=== PATIENT | female | born 1960 | race Caucasian/White ===

== ENCOUNTER 2019-07-23 08:00 | Inpatient (IN) | payer OTHER, MEDICAID ==
[~2019-07-23 08:00] MED LIST: ACETAMINOPHEN 500 MG TABLET PO ONE; CELECOXIB 100 MG CAPSULE PO ONE; CLINDAMYCIN PHOS/D5W 900MG 900 MG/50 ML BAG IVPB ONE; FAMOTIDINE 20MG TABLET PO ONE; METOCLOPRAMIDE 10 MG TABLET PO ONE; SCOPOLAMINE 1 PATCH TDSY TD ONE; VANCOMYCIN 1GM/200ML PREMIX 1 GM/200 ML PIGGYBACK IVPB ONE
[2019-07-23] MEDS ORDERED: ACETAMINOPHEN 325 MG TAB PO PRN ×2 (08:22→12:22)
[2019-07-23] MEDS ORDERED: NALOXONE 0.4 MG/1 ML VIAL IVP PRN ×2 (08:22→12:22)
[2019-07-23] MEDS ORDERED: HYDROMORPHONE HCL 2 MG/ML VIAL IM PRN ×4 (08:22→12:22)
[2019-07-23] MEDS ORDERED: AL HYDROX/MAG HYDROX 30ML UD PO PRN ×2 (08:22→12:22)
[2019-07-23] MEDS ORDERED: ACETAMINOPHEN W/ CODEINE 300MG/30MG TABLET PO PRN ×4 (08:22→12:22)
[2019-07-23] MEDS ORDERED: MAGNESIUM HYDROXIDE 30 ML UDC PO PRN ×2 (08:22→12:22)
[2019-07-23] MEDS ORDERED: ONDANSETRON 4 MG ODT TABLET SL PRN (08:22)
[2019-07-23] MEDS ORDERED: HYDROCODONE/APAP 5/325MG TABLET PO PRN ×4 (08:22→12:22)
[2019-07-23] MEDS ORDERED: PROMETHAZINE HCL 25 MG TABLET PO PRN (08:22)
[2019-07-23] MEDS ORDERED: METOCLOPRAMIDE 10 MG TABLET PO PRN (08:22)
[2019-07-23] MEDS ORDERED: DIPHENHYDRAMINE HCL 25 MG CAPSULE PO PRN ×2 (08:22→12:22)
[2019-07-23] MEDS ORDERED: ACETAMINOPHEN W/ CODEINE 300MG/60MG TABLET PO PRN ×2 (08:22→12:22)
[2019-07-23] MEDS ORDERED: KETOROLAC 30 MG/ML VIAL IVP PRN ×2 (08:22→12:22)
[2019-07-23] MEDS ORDERED: TRAMADOL HCL 50 MG TABLET PO PRN ×4 (08:22→12:22)
[2019-07-23] MEDS ORDERED: BISACODYL 10 MG SUPP RC PRN ×2 (08:22→12:22)
[2019-07-23] MEDS ORDERED: RINGERS SOLUTION,LACTATED 1,000 ML IV ONE ×2 (08:45→12:18)
[2019-07-23 09:17] LABS: ABO GROUP AB; RH TYPE POSITIVE
[2019-07-23 09:18] LABS: ANTIBODY SCREEN NEGATIVE (NEGATIVE)
[2019-07-23] MEDS ORDERED: BUPIVACAINE LIPOSOME 266MG/20ML VIAL IU ONE (11:16)
[2019-07-23] MEDS ORDERED: TRANEXAMIC ACID 1,000 MG/10 ML ML IU ONE (11:16)
[2019-07-23] MEDS ORDERED: BUPIVACAINE 0.5% W/EPI MPF 30 ML VIAL IU ONE (11:16)
[2019-07-23] MEDS ORDERED: VANCOMYCIN HCL 1 GM VIAL IU ONE (11:17)
[2019-07-23] MEDS ORDERED: VANCOMYCIN HCL 1 GM VIAL IR ONE (11:19)
[2019-07-23] MEDS ORDERED: TRANEXAMIC ACID 1,000 MG/10 ML ML IVPB ONE (11:19)
[2019-07-23] MEDS ORDERED: 0.9 % SODIUM CHLORIDE 1000ML 200 ML IV ONE (11:21)
[2019-07-23] MEDS ORDERED: ZOLPIDEM TARTRATE 5 MG TABLET PO PRN (12:22)
[2019-07-23] MEDS ORDERED: ONDANSETRON HCL IV 4 MG/2 ML VIAL IVP PRN (12:22)
[2019-07-23] MEDS ORDERED: DEXTROSE 5 % AND 0.9 % NACL 1,000 ML IV PRN ×2 (12:22→12:30)
[2019-07-23] MEDS ORDERED: HYDROCODONE/APAP 7.5/325MG TABLET PO PRN (12:22)
[2019-07-23] MEDS ORDERED: METOCLOPRAMIDE HCL 10 MG/2 ML VIAL IVP PRN (12:22)
[2019-07-23] MEDS ORDERED: PROMETHAZINE HCL 12.5 MG in 0.9 % SODIUM CHLORIDE 100ML 50 ML IVPB PRN (12:22)
[2019-07-23] MEDS ORDERED: FENTANYL CITRATE/PF (PACU) 50 MCG/ML VIAL IVP PRN (12:50)
[2019-07-23] MEDS ORDERED: VANCOMYCIN HCL 500 MG in 0.9 % SODIUM CHLORIDE 100ML 100 ML IVPB SCH (13:00)
[2019-07-23] MEDS ORDERED: DEXAMETHASONE 4 MG/ML 1ML VIAL IVP ONE (13:12)
[2019-07-23] MEDS ORDERED: NITROGLYCERIN 0.4MG SL TABLET #25 BTL SL PRN (14:21)
[2019-07-23] MEDS ORDERED: CYCLOBENZAPRINE 10MG TABLET PO PRN (14:21)
[2019-07-23] MEDS ORDERED: ALBUTEROL HFA 8 GM INHALER INH PRN (14:23)
[2019-07-23] MEDS: HYDROCODONE/APAP 7.5/325MG TABLET PO PRN ×2 (14:48→19:56)
[2019-07-23] MEDS ORDERED: ROPIVACAINE HCL (NAROPIN) /PF 5MG/ML 20ML VIAL IV ONE (14:51)
--- NOTE | 2019-07-23 16:01 | Rehab Evaluation ---
Patient Information - Patient Information Diagnosis: R knee DJD Ordered Treatment: PT Evaluate and Treat Status: Initial Evaluation Surgery: Yes (R TKA) Date of Surgery: 07/23/19 Past Medical/Surgical Hx: PAST MEDICAL/SURGICAL HISTORY Past Surgical History RIGHT KNEE SCOPE KIDNEY STONE REMOVAL HIATAL HERNIA SX HERNIA REPAIR HYST RIGHT FOOT SX CYST RIGHT THUMB HEART CATH OCTOBER 2018 C SCOPE JAKE KIDNEY SX 1987 1/2 LEFT NEPHRECTOMY PMH - Respiratory Hx Respiratory Disorders Yes Hx Asthma Yes: WELL CONTROLLED USES INHALER PRN Hx Bronchitis Yes: HX OF Hx Chronic Obstructive Yes: WELL CONTROLLED Pulmonary Disease (COPD) Hx Dyspnea Yes Hx Pneumonia Yes: IN THE PAST Hx Sleep Apnea Yes Hx of CPAP Yes: ADVISED TO BRING TO THE HOSPITAL Hx of SOB Yes: AT TIMES Comment: HX COLLAPSED LUNG 1986 DURING KIDNEY SX PMH - Cardiovascular Hx Cardiovascular Disorders Yes Hx Cardiac Catheterization Yes: Hx Chest Pain Yes: LAST EPISODE RELEIVED W NITRO Hx Edema Yes: FEET AND ANKLES Hx Coronary Artery Disease Yes: MILD Exercise Tolerance Fair PMH - Neuro Hx Neurological Disorders Yes Hx Dizziness Yes: WHEN SHE STANDS UP FAST Hx Headaches Yes: FREQUENTLY Hx Neuropathy Yes: FEET AND RIGHT HAND Comment: SMALL BRAIN ANEURYSM HAS IT CHECKED ONCE A YEAR PMH - GI Hx Gastrointestinal Disorders Yes Hx Diverticulitis Yes: HX OF Hx Gastroesophageal Reflux Yes: CONTROLLED WITH MEDS Hx Hiatal Hernia Yes: HX SX PMH - Hx Genitourinary Disorders Yes Hx Kidney Stones Yes: HX OF Hx Urinary Tract Infection Yes: FREQUENT Comment: HAS HAD 1/2 OF LEFT KIDNEY REMOVED DUE TO LARGE KIDNEY STONE PMH - Endocrine Hx Endocrine Disorders No PMH - Musculoskeletal Hx Musculoskeletal Disorders Yes Hx Arthritis Yes Hx Gout Yes PMH - Psych Hx Psychiatric Problems Yes Hx Anxiety Yes Hx Depression Yes: HX OF PMH - Hematology/Oncology Hx Hematology/Oncology Yes Disorders Hx Blood Transfusion Reaction No Premorbid Status: Detail (The patient was independent with all mobility prior to surgery.) Social History: Detail (The patient lives alone in a mobile home with 3 steps at the enterance and 2 railings. The bathroom is equipped with : a walk in shower, hand held shower head, elevated toilet and shower bench. Grab bars are present in the shower but not by the toilet. The patient has a front wheeled walker, standard cane and crutches.) Precautions: [place], Fall, Other (WBAT on the R LE.) - Time With Patient Total Time Spent With Patient (Min): 30 Treatment Procedures: Detail (Initial Evaluation,low complexity) Subjective Information - Subjective Information Per Patient (The patient complained of level 4 pain in R quadriceps region.) Objective Data - Mental Status Patient Orientation: Oriented x3 - Visual Perception Appears within normal limits for therapeutic activities - ROM Not within normal limits (The patient's R knee AROM is limited s/p surgery. All other AROM is WNL.) - Strength/Tone Not within normal limits (The patient's strength was not tested s/p however was functional ie: pt. was able to lift LE's in and out of bed.) - Bed Mobility Independent (The patient was independent with sit to supine and supine to sit with minimal use of trapeze.) - Transfers Independent (The patient was independent with sit to and from stand transfer.) - Balance Balance Sitting: Good Balance Standing: Good - Gait Detail (The patient ambulated with front wheeled walker a distance of 50 feet x 1 with supervision for safety, WBAT on R LE.) Therapy Assessment - Therapy Assessment Detail (The patient was independent with bed mobility and transfers and required supervision for safety with ambulation. The patient will be seen by PT for 1-2 sessions to complete inpt. PT goals.) Problem List - Problem List Physical Therapy Problem List: Detail (Decreased R knee AROM and decreased R LE strength.) Goals - Goals Physical Therapy Goals: 1) The patient will ambulate independently with front wheeled walker a distance of 100 feet. 2) The patient will ambulate on stairs with supervision for safety using proper technique. 3) The patient will be independent with TKA HEP. Plan - Plan Physical Therapy Plan: PT 1-2 sessions for gait training on levels and stairs and instruction in TKA HEP.
[2019-07-23] MEDS ORDERED: LOSARTAN POTASSIUM 25 MG TABLET PO SCH (18:00)
[2019-07-23] MEDS: VANCOMYCIN 1GM/200ML PREMIX 1 GM/200 ML PIGGYBACK IVPB SCH (20:03)
[2019-07-23] MEDS: FERROUS SULFATE 325 MG TAB PO SCH (21:20)
[2019-07-23] MEDS: DOCUSATE SODIUM 100 MG CAPSULE PO SCH (21:20)
[2019-07-23] MEDS ORDERED: DOCUSATE SODIUM 100 MG CAPSULE PO SCH (22:00)
[2019-07-24] MEDS: HYDROCODONE/APAP 7.5/325MG TABLET PO PRN (02:34)
[2019-07-24] MEDS ORDERED: PANTOPRAZOLE SODIUM 40 MG TABLET PO SCH (07:00)
[2019-07-24 07:10] LABS: HEMATOCRIT 39.8 % (35.0-47.0); HEMOGLOBIN 12.4 gm/dl (11.6-16.0)
--- NOTE | 2019-07-24 08:30 | Operative Note ---
DATE OF SURGERY: 07/23/2019 PREOPERATIVE DIAGNOSIS: End-stage right knee arthrosis. POSTOPERATIVE DIAGNOSIS: End-stage right knee arthrosis. OPERATION: Right total knee arthroplasty. SURGEON: John Voss MD ANESTHESIA: Spinal. COMPLICATIONS: None. ESTIMATED BLOOD LOSS: Minimal. TOURNIQUET TIME: No tourniquet. OPERATIVE FINDINGS: [id number] medial compartment arthrosis, grade 4 chondromalacia patellofemoral joint. COMPONENTS PLACED: A 2 g vancomycin cemented Meraz [employer] Nephew Journey II Oxinium total knee arthroplasty system, size 5 femoral component, a size 4 tibial baseplate, a 12 mm thick tibial poly insert, and 35 mm cemented patellar component. INDICATIONS: This is a 59-year-old female who has had persistent pain and dysfunction in the knee for several years. Failed nonoperative treatment and operative treatment including arthroscopic debridement. She had grade 4 chondromalacia on the patellofemoral and medial compartments noted at the time. She failed injections, anti-inflammatories as well and was scheduled for knee replacement. I explained all risks and benefits in detail for the diagnosis and procedure including but not limited to infection, nerve injury, vessel injury, persistent pain, stiffness, numbness, tingling in the knee, periprosthetic fracture, need for resection arthroplasty if components become infected or loosen, nerve injury, vessel injury, blood clot and need for further procedures. All her questions were answered. Rehab and healing course outlined. She agreed to proceed. PROCEDURE: The patient brought to the OR, placed in the supine position, prepped for surgery. Spinal anesthesia induced. The right lower extremity and knee were prepped and draped in sterile fashion. Right knee prepped again with Chloraprep after it was draped. Intraoperative timeout was performed. Next, the leg was exsanguinated with Esmarch and did not use tourniquet the entire case. We used Aquamantys electrocautery at every layer of the procedure. Skin and subcutaneous tissue was dissected down. Incised the capsule medially around the medial border of the patella to the tibial tubercle. Incised the vastus medialis in line with its fibers in a mid vastus approach. I partially resected the retropatellar fat pad, elevated the capsule subperiosteally and medially, cauterized again every layer. Next, then flexed the knee. She had [id number] medial compartment and grade 4 chondromalacia of patella. Drilled intracondylar drill hole, inserted the intramedullary guide yakov, 6-degree cutting block, aligned off the distal femoral condyles and pinned it in place in a +2 mm position and cut the distal femoral condyles. Next, we placed a sizing jig on the distal femoral condyles and sized it to be right on size 5. Through the previously-placed pin holes, we placed a size 5 cutting jig. We dialed the anterior cut so it would come out flush without notching. A good footprint. We cut that. It was a good footprint cut. We then pinned the cutting jib to complete its fixation and then cut the remainder of the chamfer cuts in the usual fashion. Next, then we placed a size trial 5 component, centered it, pinned it, inserted the resection collet, reamed out and box osteotomed out the cruciate bone block. Next, attention was turned to the tibia. Exposed the tibia, moved the meniscus, seated the spikes of the external alignment jig in the tubercular groove off the central 1/3 of the tibial tubercle 2 fingerbreadths distally in reference for a 7 mm cut off the higher lateral plateau. We pinned that cutting jig provisionally placed with 2 anterior-posterior pins. We rechecked alignment of the cutting jig using a drop yakov centered on the tibial anatomic axis, cross- pinned the cutting jig completing its fixation, and cut the tibia. Next, we removed osteophytes off the posterior femoral condyles. Checked the flexion/extension gaps. We sized up to a 12 mm. This would allow for 1-2 mm of varus/valgus laxity in flexion/extension. Overall alignment in extension was anatomic in valgus orientation with alignment yakov centered on the hip joint and ankle joint. Next, took in flexion and sized the tibial baseplate to a size 4, replaced all trial components, set the rotation tibial baseplate again extension using the alignment yakov centered on hip joint and ankle joint. Marked pen courtney off the laser courtney on the bone tibial. Attention was turned to the patella, measured the patella, set the cutting jig to allow for a 9 mm thick poly insert. Cut the patella, remeasured. It was right on our previous measurement, about 12-13. Chamfered off lateral patellar facet, sized it to be 35. Medialized as much as possible, drilled the 3 peg holes, and then inserted the trial 35 mm patellar component. Did a trial range of motion. The patella tracked nicely handsfree. Again symmetric flexion/extension gaps. We mixed cement. Flexed the knee, removed all trial components, placed the bone plug in the femoral canal hole. Seated the tibial baseplate at the previously placed electrocautery courtney, pinned it in place and reamed out and keel punched keel hole. Irrigated copiously. Changed gloves, brought in clean sheets. Placed the drill in the tibial keel hole and then dried with our CarboJet bone surface dryer. Then precut bolsters and impacted down the tibial component first removing excess cement and then the femoral component removing excess cement. Placed the trial tibial poly liner, held the knee in extension, clamped down the patellar component, held that until the cement hardened. Took the knee in flexion, distracted the knee with the bone hook and sponge and removed all excess cement off the edges of the components. We irrigated posteriorly and knee and then cauterized again with our Aquamantys in posterior capsule area. Then injected our 0.5% Marcaine with epinephrine, tranexamic acid, and Exparel mixture with several sticks in posterior, medial, and lateral capsule and periosteum. Next, then inserted the real tibial poly insert and verified that it was interlocked medially and laterally. We found our range of motion was be the same. We closed the knee in flexion using running #2 quill suture securely. Injected the remainder of our mixture in the deep tissue vastus quadriceps subcutaneous. Irrigated again. Closed the skin with severe 2-0 interrupted Vicryl stitch securely. A LAILA dressing applied and Jose wrap. Tolerated the procedure well. No intraoperative complications. Sponge, needle, and blade counts correct. Recovery room stable, neurovascularly intact. Discharged to the floor and will be discharged home tomorrow. Follow up in 2 weeks. WAYNE
[2019-07-24] MEDS: DOCUSATE SODIUM 100 MG CAPSULE PO SCH (09:27)
[2019-07-24] MEDS: FERROUS SULFATE 325 MG TAB PO SCH (09:27)
[2019-07-24] MEDS: VANCOMYCIN 1GM/200ML PREMIX 1 GM/200 ML PIGGYBACK IVPB SCH (09:27)
--- NOTE | 2019-07-24 09:31 | Rehab Evaluation ---
Patient Information - Patient Information Diagnosis: R knee DJD Ordered Treatment: OT Evaluate and Treat Status: Initial Evaluation Surgery: Yes (R TKA) Date of Surgery: 07/23/19 Past Medical/Surgical Hx: PAST MEDICAL/SURGICAL HISTORY Past Surgical History RIGHT KNEE SCOPE KIDNEY STONE REMOVAL HIATAL HERNIA SX HERNIA REPAIR HYST RIGHT FOOT SX CYST RIGHT THUMB HEART CATH OCTOBER 2018 C SCOPE JAKE KIDNEY SX 1987 1/2 LEFT NEPHRECTOMY PMH - Respiratory Hx Respiratory Disorders Yes Hx Asthma Yes: WELL CONTROLLED USES INHALER PRN Hx Bronchitis Yes: HX OF Hx Chronic Obstructive Yes: WELL CONTROLLED Pulmonary Disease (COPD) Hx Dyspnea Yes Hx Pneumonia Yes: IN THE PAST Hx Sleep Apnea Yes Hx of CPAP Yes: ADVISED TO BRING TO THE HOSPITAL Hx of SOB Yes: AT TIMES Comment: HX COLLAPSED LUNG 1986 DURING KIDNEY SX PMH - Cardiovascular Hx Cardiovascular Disorders Yes Hx Cardiac Catheterization Yes: Hx Chest Pain Yes: LAST EPISODE RELEIVED W NITRO Hx Edema Yes: FEET AND ANKLES Hx Coronary Artery Disease Yes: MILD Exercise Tolerance Fair PMH - Neuro Hx Neurological Disorders Yes Hx Dizziness Yes: WHEN SHE STANDS UP FAST Hx Headaches Yes: FREQUENTLY Hx Neuropathy Yes: FEET AND RIGHT HAND Comment: SMALL BRAIN ANEURYSM HAS IT CHECKED ONCE A YEAR PMH - GI Hx Gastrointestinal Disorders Yes Hx Diverticulitis Yes: HX OF Hx Gastroesophageal Reflux Yes: CONTROLLED WITH MEDS Hx Hiatal Hernia Yes: HX SX PMH - Hx Genitourinary Disorders Yes Hx Kidney Stones Yes: HX OF Hx Urinary Tract Infection Yes: FREQUENT Comment: HAS HAD 1/2 OF LEFT KIDNEY REMOVED DUE TO LARGE KIDNEY STONE PMH - Endocrine Hx Endocrine Disorders No PMH - Musculoskeletal Hx Musculoskeletal Disorders Yes Hx Arthritis Yes Hx Gout Yes PMH - Psych Hx Psychiatric Problems Yes Hx Anxiety Yes Hx Depression Yes: HX OF PMH - Hematology/Oncology Hx Hematology/Oncology Yes Disorders Hx Blood Transfusion Reaction No Premorbid Status: Detail (The patient was independent with all mobility prior to surgery. She has a nurses aide daily who assists with all meal prep, laundry, home mgmt and ADLs.) Social History: Detail (The patient lives alone in a mobile home with 3 steps at the entrance and 2 railings. The bathroom is equipped with : a walk in shower, hand held shower head, elevated toilet and shower bench. Grab bars are present in the shower but not by the toilet. The patient has a front wheeled walker, standard cane and crutches.) Precautions: [place], Fall, Other (WBAT on the R LE.) - Time With Patient Total Time Spent With Patient (Min): 40 Treatment Procedures: Detail (OT eval low complexity) Subjective Information - Subjective Information Per Patient Objective Data - Pain Pain Present: Yes (07/27) - Mental Status Patient Orientation: Oriented x3 - Visual Perception Appears within normal limits for therapeutic activities - ROM Within normal limits ([place] UE AROM WNL) - Strength/Tone Within normal limits ([place] UE strength WNL) - Coordination Appears within normal limits for therapeutic activities - Bed Mobility Independent (Ind with supine to sit) - Transfers Independent (Ind with sit to stand from EOB and toilet heights) - Balance Balance Sitting: Good Balance Standing: Good - Sensation Intact - Gait Detail (Pt ambulating in room with walker and supervision.) - ADL's/IADL's Detail (Pt educated and able to demonstrate Ind with modified LE dressing techniques including doffing slipper socks and briefs and donning gerry sock (with assist), underwear, pants and slip on shoes. Reviewed shower and kitchen safety and modifications, pt verbalized understanding.) Therapy Assessment - Therapy Assessment Detail (Pt is Ind with modified LE dressing techniques.) Problem List - Problem List Physical Therapy Problem List: Detail (Decreased R knee AROM and decreased R LE strength.) Occupational Therapy Problem List: Detail (No current IP OT problems identified.) Goals - Goals Physical Therapy Goals: 1) The patient will ambulate independently with front wheeled walker a distance of 100 feet. 2) The patient will ambulate on stairs with supervision for safety using proper technique. 3) The patient will be independent with TKA HEP. Occupational Therapy Goals: No current IP OT goals identified. Prognosis - Prognosis Good Plan - Plan Physical Therapy Plan: PT 1-2 sessions for gait training on levels and stairs and instruction in TKA HEP. Occupational Therapy Plan: Pt is discharged from IP OT at this time. Thank you for this referral.
--- NOTE | 2019-07-24 09:47 | Consult ---
Consult Order Detail - Reason for Consult Consult Date: 07/24/19 Consult Order Detail: 07/24/19: Consult re: post-op hypertension at 190/93. BP improved to 144/77 after PRN pain medication and Cozaar 25mg po given. Patient denies CP, SOB, fevers. No new nursing concerns noted. Patient to receive daily Toprol 25mg today 1000 and will recheck pressure this afternoon to ensure BP stabilized. Patient stated she was previously on two BP medications daily and was having hypotensive events (dizziness, faint feeling), so her Physician discontinued one of them, currently only taking Toprol Daily. Will likely D/C home with only Toprol if BP stabilized. - Chief Complaint Chief Complaint: RIGHT KNEE ARTHROSIS HPI Consult - History of Present Illness Admitting Diagnosis: Right Total Knee Arthroplasty History of Present Illness: 07/24/19: Pt s/p RTKA with Dr. Voss without complications. Patient stable post-op and admitted to the Med/Surg floor to be discharged < 24 hours. ROS Reviewed: No additional complaints except as noted below Constitutional: Denies: Fever, Malaise Eyes: Reports: As per HPI - ENT ENT: Reports: As per HPI - Respiratory Respiratory: Reports: As per HPI. Denies: Cough, Dyspnea, Hemoptysis, Stridor, Wheezes - Cardiovascular Cardiovascular: Reports: As per HPI. Denies: Chest pain, Dyspnea on exertion, Palpitations, Syncope - Neurological Neurological: Reports: As per HPI. Denies: Headache - Psychiatric Psychiatric: Reports: As per HPI Past Medical History - SOCIAL HISTORY Smoking Status: Current every day smoker Alcohol Use: None Drug Use: Occasional Drug Use Detail:: Marijuana - RESPIRATORY Hx Respiratory Disorders: Yes Hx Asthma: Yes (WELL CONTROLLED USES INHALER PRN) Hx Bronchitis: Yes (HX OF) Hx COPD: Yes (WELL CONTROLLED) Hx Dyspnea: Yes Hx Pneumonia: Yes (IN THE PAST) Hx Sleep Apnea: Yes Hx of CPAP: Yes (ADVISED TO BRING TO THE HOSPITAL) Comment:: HX COLLAPSED LUNG 1987 DURING KIDNEY SX - CARDIOVASCULAR Hx Cardio Disorders: Yes Hx Cardiac Cath: Yes () Hx Chest Pain: Yes (LAST EPISODE RELEIVED W NITRO) Hx Edema: Yes (FEET AND ANKLES) Hx Coronary Artery Disease: Yes (MILD) - NEURO Hx Neuro Disorders: Yes Hx Dizziness: Yes (WHEN SHE STANDS UP FAST) Hx Headaches: Yes (FREQUENTLY) Hx Neuropathy: Yes (FEET AND RIGHT HAND) Comment:: SMALL BRAIN ANEURYSM HAS IT CHECKED ONCE A YEAR - GI Hx GI Disorders: Yes Hx Diverticulitis: Yes (HX OF) Hx Reflux: Yes (CONTROLLED WITH MEDS) Hx Hiatal Hernia: Yes (HX SX) Hx of Polyps: Yes (MULTIPLE) - Hx Genitourinary Disorders: Yes Hx Kidney Stones: Yes (HX OF) Hx UTI: Yes (FREQUENT) Comment:: HAS HAD 1/2 OF LEFT KIDNEY REMOVED DUE TO LARGE KIDNEY STONE - ENDOCRINE Hx Endocrine Disorders: No - MUSCULOSKELETAL Hx Musculoskeletal Disorders: Yes Hx Arthritis: Yes Hx Gout: Yes - PSYCH Hx Psych Problems: Yes Hx Anxiety: Yes Hx Depression: Yes (HX OF) - HEMATOLOGY/ONCOLOGY Hx Hematology/Oncology Disorders: Yes Hx Blood Transfusions: Yes ( A CHILD WITH INGESTION OF BABY ASA) Hx Blood Transfusion Reaction: No Family Medical History Any Significant Family History?: Yes Hx Alcohol Use: Grandparents Hx Dementia: Mother Hx HTN: Mother H&P Meds - Home Medications and Allergies Allergies Allergy/AdvReac Type Severity Reaction Status Date / Time aspirin Allergy RASH Verified 07/16/19 14:01 Penicillins Allergy PT UNSURE Verified 07/16/19 14:01 OF REACTION Physical Exam - Vital Signs Vital Signs: Vital Signs - Last 24 Hrs Temp Pulse Pulse Pulse Resp BP Pulse Ox 07/24/19 07:45 98.7 F 68 16 120/69 92 L 07/23/19 21:00 98.1 F 78 16 144/77 97 07/23/19 20:00 74 97 07/23/19 17:08 75 18 126/110 92 L 07/23/19 16:00 82 16 190/93 98 07/23/19 15:35 97.2 F L 68 15 164/80 91 L 07/23/19 15:05 58 L 16 166/110 94 L 07/23/19 14:35 97.2 F L 66 16 212/159 98 07/23/19 14:05 60 16 193/117 97 07/23/19 13:55 61 16 07/23/19 13:50 62 17 196/96 95 07/23/19 13:35 59 L 16 161/89 93 L 07/23/19 13:20 97.5 F L 62 18 171/95 90 L 07/23/19 12:55 61 12 143/86 95 07/23/19 12:50 60 14 148/84 97 07/23/19 12:45 60 12 141/84 94 L 07/23/19 12:41 60 12 140/90 92 L 07/23/19 12:36 59 L 15 148/84 93 L 07/23/19 12:31 56 L 12 154/73 92 L 07/23/19 12:26 97.0 F L 65 14 154/75 92 L - General General Appearance: Alert, Oriented x3, Cooperative, No acute distress Limitations: Physical limitation (r/t surgery) - Head Head exam: Atraumatic, Normocephalic, Normal inspection - Eye Eye exam: Normal appearance - Respiratory Respiratory exam: Normal lung sounds bilaterally. negative: Respiratory distress, Rhonchi, Stridor, Wheezes - Cardiovascular Cardiovascular Exam: Regular rate, Normal rhythm, Normal heart sounds - Rectal Rectal exam: Deferred - exam: Deferred - Psychiatric Psychiatric exam: Normal affect, Normal mood - Skin Skin exam: Dry, Intact Results - Labs Result Diagrams: 07/24/19 06:15 Labs Last 24 Hours: Laboratory Results - last 24 hr 07/24/19 06:15 Hgb 12.4 Hct 39.8 Assessment and Plan - Assessment and Plan (1) Hypertension following surgery Current Visit: Yes Status: Acute Base Code: I97.3 - POSTPROCEDURAL HYPERTENSION Comment: 07/24/19: -Pt with hypertension s/p RTKA at 190/93 -Pain control with PRN medications -One time dose of Cozaar 25 mg PO -BP stabilized at 120/69 (0745 today) and 129/75 (1300 today) -D/C only with home Toprol 25mg d/t previous issue with hypotension and dizziness while taking two medications for BP
[2019-07-24] MEDS ORDERED: RIVAROXABAN 10 MG TABLET PO SCH (10:00)
[2019-07-24] MEDS ORDERED: CELECOXIB 100 MG CAPSULE PO SCH (10:00)
[2019-07-24] MEDS ORDERED: METOPROLOL SUCC 25 MG TAB.ER PO SCH (10:00)
--- NOTE | 2019-07-24 10:41 | Physical Therapy Tx Note ---
Physical Therapy Tx Note - Treatment Note Tolerated: Good Total Time Spent With Patient: 20 Physical Therapy Tx Note: Detail (The patient was up in chair when PT arrived. The patient ambulated with front wheeled walker WBAT on the R LE independently a distance of 200 feet x 1. The patient ambulated on 3 stairs with use of cane and one railing using proper technique with supervision for safety. The patient completed TKA HEP which included: seated heel slides, SLR, ankle pumps, quad sets, gluteal sets, hamstring sets. The patient has met all inpt. PT goals and is discharged from inpt. PT.) Physical Therapy Problem List: Detail (Decreased R knee AROM and decreased R LE strength.) Physical Therapy Goals: 1) The patient will ambulate independently with front wheeled walker a distance of 100 feet. (Goal Met). 2) The patient will ambulate on stairs with supervision for safety using proper technique.(Goal Met). 3) The patient will be independent with TKA HEP.(Goal Met) Physical Therapy Plan: The pt. is discharged from inpt. PT and is to continue with Home PT.
[2019-07-24] MEDS ORDERED: KETOROLAC 30 MG/ML VIAL IVP ONE (13:54)
[2019-07-24] MEDS ORDERED: EPHEDRINE SULFATE 50 MG/ML ML IV ONE (13:54)
[2019-07-24] MEDS ORDERED: FENTANYL PF 100MCG/2ML VIAL IV ONE (13:54)
[2019-07-24] MEDS ORDERED: LIDOCAINE 2% MDV (20MG/ML) 20ML VIAL IV ONE (13:54)
[2019-07-24] MEDS ORDERED: MIDAZOLAM HCL 2MG/2ML VIAL IV ONE (13:54)
[2019-07-24] MEDS ORDERED: PROPOFOL 10 MG/ML VIAL IV ONE (13:54)
== END 2019-07-24 13:55 | disposition home health service (06) | DRG 470 ==
LOC: MEDSURG 08:06
PROVIDERS: ADMIT Orthopaedic Surgery; ATTEND Orthopaedic Surgery
PROC: 0SRC069 Replacement of Right Knee Joint with Oxidized Zirconium on Polyethylene Synthetic Substitute, Cemented, Open Approach (ICD-10-PCS; principal; 2019-07-23 10:00)
DX: M17.11 Unilateral primary osteoarthritis, right knee (principal); K21.9 Gastro-esophageal reflux disease without esophagitis; J44.9 Chronic obstructive pulmonary disease, unspecified; J45.909 Unspecified asthma, uncomplicated; F17.210 Nicotine dependence, cigarettes, uncomplicated
CPT/HCPCS: 76942; 85014; 85018; 86850; 86900; 86901; 94760; C1776; J1885; J3370; J3490; J7030; J7042; J7120